=== PATIENT | female | born 1990 | race Caucasian/White ===

== ENCOUNTER 2020-03-17 21:01 | Emergency (ER) | payer MEDICAID ==
[~2020-03-17] VITALS: Ht 170.2 cm; Wt 63.5 kg
[2020-03-17 22:52] VITALS: BP 118/69
== END 2020-03-17 22:53 | disposition home or self-care (01) ==
LOC: M.ERS 21:01
DX: B30.9 Viral conjunctivitis, unspecified (principal); R59.0 Localized enlarged lymph nodes